=== PATIENT | male | born 1970 | race Caucasian/White ===

== ENCOUNTER 2021-02-01 13:16 | Outpatient (CLI) | payer BC, SELFPAY ==
--- NOTE | 2021-02-01 13:23 | USCV_ITS ---
Юлияbarry Shree Age: 50 Gender: M : 1970 Exam Date: 02/01/2021 13:47 Ordering Phys: Debi Shipley APN- MY[employer] Technologist: Ainsley Quinones Exam Location: [facility] – [place] Indication: left carotid bruit, history tobacco use Risk Factors: Smoker Previous Vascular Surgery: None Right Brachial BP: / Left Brachial BP: / Right Left Velocity (cm/s) Spectral Plaque Velocity (cm/s) Spectral Plaque Syst/Diast Broadening Syst/Diast Broadening 61.10/ 13.80 Prox CCA 76.10 / 22.10 75.40/ 18.60 Mid CCA 63.20 / 17.90 69.10/ 20.20 Distal CCA 64.90 / 17.10 50.00/ 16.40 Prox ICA 65.70 / 6.60 44.90/ 18.20 Mid ICA 80.50 / 34.20 80.30/ 34.20 Distal ICA 75.40 / 36.20 118.00 ECA 118.00 1.07 ICA/CCA 1.06 Antegrade Vertebral Antegrade 49.70/ 18.60 cm/s 36.20/ 10.50 cm/s Tri Subclavian Tri 166.2 100.4 0 0 CONCLUSIONS Right ICA stenosis <50%. Left ICA stenosis <50%. Normal antegrade Doppler flow noted in the right vertebral artery. Normal antegrade Doppler flow noted in the left vertebral artery. Hansel Feliz MD (Electronically Signed) Final Date: 01 February 2021 14:51 S
== END 2021-02-01 13:17 | disposition home or self-care (01) ==
PROVIDERS: PCP Nurse Practitioner Family; Visit Provider Nurse Practitioner Family
DX: R09.89 Other specified symptoms and signs involving the circulatory and respiratory systems (principal); Z87.891 Personal history of nicotine dependence; I65.23 Occlusion and stenosis of bilateral carotid arteries
CPT/HCPCS: 93880

== ENCOUNTER 2021-07-15 09:14 | Outpatient (CLI) | payer BC, SELFPAY ==
[2021-07-15 09:22] VITALS: BP 149/87; PULSE 78; RESP 17; TEMP 36.7; O2SAT 98; BMI 27.8
[2021-07-15 10:20] VITALS: BP 124/77; PULSE 60; RESP 18; TEMP 36.6; O2SAT 97
[2021-07-15 11:21] VITALS: BP 125/83; PULSE 60; RESP 18; TEMP 36.5; O2SAT 98
[2021-07-15 11:24] VITALS: BP 125/83; PULSE 60; RESP 18; TEMP 36.5; O2SAT 98
== END 2021-07-15 09:15 | disposition home or self-care (01) ==
LOC: OPS 09:16
PROVIDERS: PCP Nurse Practitioner Family; Visit Provider Nurse Practitioner Family
DX: U07.1 COVID-19 (principal)
CPT/HCPCS: 96365

== ENCOUNTER 2024-08-05 13:35 | Outpatient (CLI) | payer BC, SELFPAY ==
--- NOTE | 2024-08-05 13:48 | XR_ITS ---
WS: [id number] Exam: XR knee RT 4V [id number] Date/Time of Exam: 08/05/2024 2:00 PM Reason For Exam: acute pain of right knee No fracture. The joints are preserved. No joint effusion. XR/XR knee RT 4V [id number] Impression: Negative RIGHT knee.
== END 2024-08-05 13:36 | disposition home or self-care (01) ==
LOC: RAD 13:46
PROVIDERS: PCP Nurse Practitioner Family; Visit Provider Nurse Practitioner Family
DX: M25.561 Pain in right knee (principal)
CPT/HCPCS: 73564